=== PATIENT | female | born 1980 | race Caucasian/White ===

== ENCOUNTER 2017-11-22 23:05 | Emergency (ER) | payer OTHER ==
[~2017-11-22] VITALS: Ht 157.5 cm; Wt 69.5 kg
[2017-11-22 23:24] VITALS: Ht 157.5 cm; Wt 69.5 kg
[2017-11-23 01:37] VITALS: BP 130/88
== END 2017-11-23 01:35 | disposition home or self-care (01) ==
LOC: ED 23:05
DX: S01.01XA Laceration without foreign body of scalp, initial encounter (principal); Z88.6 Allergy status to analgesic agent; W26.8XXA Contact with other sharp object(s), not elsewhere classified, initial encounter; Y93.89 Activity, other specified; Y92.89 Other specified places as the place of occurrence of the external cause; Y99.8 Other external cause status